=== PATIENT | male | born 1945 | race Caucasian/White ===

== ENCOUNTER 2016-10-21 15:29 | Emergency (ER) | payer OTHER ==
[~2016-10-21] VITALS: Ht 172.7 cm; Wt 104.0 kg
[~2016-10-21 15:29] MED LIST: ALLO100T30 PO; DOCU-144 PO; FERR325T20 PO; FURO40TA6 PO; OMEP-110 PO; PREG75CA PO; SPIR100T2 PO; SPIR50TA PO; TRAM50TA2 PO
[2016-10-21] MEDS ORDERED: SODIUM CHLORIDE FLUSH 10ML SYR IVF ONE (16:00)
[2016-10-21 16:26] LABS: ASPARTATE AMINO TRANSFERASE 33 U/L (15-37); BLOOD UREA NITROGEN 58 mg/dL (7-18)
[2016-10-21 16:35] LABS: IS PT STATUS REG ER OR PRE ER? YES
[2016-10-21 20:07] VITALS: BP 118/67
== END 2016-10-21 20:12 | disposition home or self-care (01) ==
LOC: ED 20:11
DX: R18.8 Other ascites (principal); R06.00 Dyspnea, unspecified; I25.2 Old myocardial infarction; I50.9 Heart failure, unspecified; N18.3 Chronic kidney disease, stage 3 (moderate)
CPT/HCPCS: 36415; 49083; 71010; 80053; 83880; 84484; 85025; 85610; 85730; 93005

== ENCOUNTER 2016-11-05 10:57 | Inpatient (IN) | payer OTHER ==
[~2016-11-05] VITALS: Ht 172.7 cm; Wt 121.8 kg
[2016-11-05] MEDS ORDERED: FURO-93 PO (11:18)
[2016-11-05] MEDS ORDERED: SPIR25TA3 PO (11:18)
[2016-11-05] MEDS ORDERED: SODIUM CHLORIDE FLUSH 10ML SYR IVF ONE (11:30)
[2016-11-05] MEDS ORDERED: PLEASE ENTER HEIGHT AND WEIGHT MC SCH (11:30)
[2016-11-05 11:51] LABS: ASPARTATE AMINO TRANSFERASE 38 U/L (15-37); BLOOD UREA NITROGEN 66 mg/dL (7-18)
[2016-11-05 11:57] LABS: IS PT STATUS REG ER OR PRE ER? YES
[2016-11-05] MEDS ORDERED: SODIUM CHLORIDE 0.9% 1,000 ML IV SCH (13:07)
[2016-11-05] MEDS ORDERED: ONDANSETRON ODT 4 MG PO PRN (13:30)
[2016-11-05 15:05] VITALS: BP 113/75
[2016-11-05] MEDS ORDERED: FUROSEMIDE 20 MG TABLET PO SCH (21:00)
[2016-11-05 21:04] VITALS: BP 113/75
[2016-11-05] MEDS: LACTULOSE 10 GM/15 ML UDC PO SCH (22:30)
[2016-11-06] MEDS: OXYcodone IR 5MG TABLET PO PRN ×2 (00:31→05:22)
[2016-11-06 01:23] VITALS: BP 106/66
[2016-11-06 04:15] LABS: BLOOD UREA NITROGEN 68 mg/dL (7-18)
[2016-11-06 08:16] VITALS: BP 113/75
[2016-11-06] MEDS: ALLOPURINOL 100 MG TABLET PO SCH (09:00)
[2016-11-06] MEDS ORDERED: FUROSEMIDE 20 MG TABLET PO SCH (09:00)
[2016-11-06] MEDS: LACTULOSE 10 GM/15 ML UDC PO SCH ×2 (10:41→22:48)
[2016-11-06] MEDS ORDERED: ALBUMIN HUMAN 25% 50 ML IV ONE (12:30)
[2016-11-06] MEDS ORDERED: FUROSEMIDE 40 MG/4 ML IV ONE (12:30)
[2016-11-06] MEDS ORDERED: SODIUM CHLORIDE 0.9% 1,000 ML IV SCH ×2 (13:07)
[2016-11-06] MEDS: SPIRONOLACTONE 25 MG TABLET PO SCH (13:11)
[2016-11-06] MEDS: SODIUM CHLORIDE 0.9% 1,000 ML IV SCH (13:11)
[2016-11-06] MEDS ORDERED: SODIUM BICARBONATE 4.2%, 5ML ONE (13:47)
[2016-11-06] MEDS ORDERED: LIDOCAINE 1%, 20ML ONE (13:47)
[2016-11-06 15:16] VITALS: BP 113/76
[2016-11-06 19:17] VITALS: BP 95/59
[2016-11-07] MEDS: SODIUM CHLORIDE 0.9% 1,000 ML IV SCH ×2 (00:33→13:21)
[2016-11-07 03:01] VITALS: BP_SYST 103; BP_SYST 127; BP_DIAS 66; BP_DIAS 72
[2016-11-07 05:41] LABS: ASPARTATE AMINO TRANSFERASE 25 U/L (15-37); BLOOD UREA NITROGEN 67 mg/dL (7-18)
[2016-11-07 06:54] VITALS: BP 96/61
[2016-11-07] MEDS: OXYcodone IR 5MG TABLET PO PRN ×3 (08:35→17:07)
[2016-11-07] MEDS: LACTULOSE 10 GM/15 ML UDC PO SCH ×2 (08:36→20:52)
[2016-11-07] MEDS: ALLOPURINOL 100 MG TABLET PO SCH (08:36)
[2016-11-07] MEDS ORDERED: FUROSEMIDE 20 MG TABLET PO SCH ×2 (09:00→21:00)
[2016-11-07] MEDS ORDERED: HEPARIN 5,000 UNITS/ML, 1ML SQ SCH (11:30)
[2016-11-07 12:35] VITALS: BP 98/64
[2016-11-07 20:30] VITALS: BP 99/65
[2016-11-08 02:26] VITALS: BP 121/68
[2016-11-08] MEDS: SODIUM CHLORIDE 0.9% 1,000 ML IV SCH (03:10)
[2016-11-08 07:44] VITALS: BP 111/71
[2016-11-08] MEDS ORDERED: CEFTRIAXONE PMX 1GM/50ML 50 ML IV SCH (08:00)
[2016-11-08] MEDS ORDERED: POLYETHYLENE GLYCOL 17 GM PACKET PO PRN (08:30)
[2016-11-08 08:38] LABS: ASPARTATE AMINO TRANSFERASE 21 U/L (15-37); BLOOD UREA NITROGEN 72 mg/dL (7-18)
[2016-11-08] MEDS: FUROSEMIDE 40 MG TABLET PO SCH ×3 (09:00→21:28)
[2016-11-08] MEDS: SPIRONOLACTONE 25 MG TABLET PO SCH ×2 (09:00→10:25)
[2016-11-08] MEDS: OXYcodone IR 5MG TABLET PO PRN ×3 (10:21→23:04)
[2016-11-08] MEDS: LACTULOSE 10 GM/15 ML UDC PO SCH ×2 (10:25→21:28)
[2016-11-08] MEDS: ALLOPURINOL 100 MG TABLET PO SCH (10:25)
[2016-11-08] MEDS: DOCUSATE 100 MG CAPSULE PO SCH (10:35)
[2016-11-08 12:30] VITALS: BP 108/70
[2016-11-08] MEDS: POLYETHYLENE GLYCOL 17 GM PACKET PO PRN (13:20)
[2016-11-08 19:08] VITALS: BP 113/73
[2016-11-09 01:26] VITALS: BP 115/75
[2016-11-09 08:14] VITALS: BP 116/73
[2016-11-09] MEDS: SPIRONOLACTONE 25 MG TABLET PO SCH (09:00)
[2016-11-09] MEDS: FUROSEMIDE 40 MG TABLET PO SCH (09:00)
[2016-11-09] MEDS: DOCUSATE 100 MG CAPSULE PO SCH (09:00)
[2016-11-09] MEDS ORDERED: SODIUM CHLORIDE NASAL SPRAY 45ML BOTTLE NAS PRN (09:00)
[2016-11-09] MEDS ORDERED: FUROSEMIDE 100 MG/10 ML IV ONE (14:00)
[2016-11-09 14:30] VITALS: BP 113/69
[2016-11-09] MEDS: LACTULOSE 10 GM/15 ML UDC PO SCH ×2 (17:32→21:00)
[2016-11-09] MEDS: OXYcodone IR 5MG TABLET PO PRN (17:33)
[2016-11-09 20:13] VITALS: BP 116/75
[2016-11-10 01:39] VITALS: BP 117/75
[2016-11-10 04:28] VITALS: BP 124/81
[2016-11-10] MEDS ORDERED: FUROSEMIDE 40 MG/4 ML IV SCH (07:30)
[2016-11-10 07:34] VITALS: BP 134/68
[2016-11-10] MEDS: SPIRONOLACTONE 25 MG TABLET PO SCH (09:00)
[2016-11-10] MEDS: DOCUSATE 100 MG CAPSULE PO SCH (09:00)
[2016-11-10] MEDS: LACTULOSE 10 GM/15 ML UDC PO SCH ×2 (09:00→22:02)
[2016-11-10] MEDS: OXYcodone IR 5MG TABLET PO PRN ×2 (14:55→22:02)
[2016-11-10 15:55] LABS: HEP B SURF. AB 3.3 mIU/mL (0.0-10.0)
[2016-11-10 18:49] VITALS: BP 123/82
[2016-11-11 00:45] VITALS: BP 118/76
[2016-11-11 08:04] VITALS: BP 118/80
[2016-11-11 08:49] LABS: BLOOD UREA NITROGEN 53 mg/dL (7-18)
[2016-11-11] MEDS ORDERED: BISACODYL 10 MG SUPP PR PRN (11:30)
[2016-11-11] MEDS: DOCUSATE 100 MG CAPSULE PO SCH (11:49)
[2016-11-11] MEDS: LACTULOSE 10 GM/15 ML UDC PO SCH ×2 (11:49→20:59)
[2016-11-11] MEDS: OXYcodone IR 5MG TABLET PO PRN ×2 (11:49→20:32)
[2016-11-11 13:07] VITALS: BP 121/78
[2016-11-11 20:00] VITALS: BP 114/76
[2016-11-11] MEDS: POLYETHYLENE GLYCOL 17 GM PACKET PO PRN (20:59)
[2016-11-12 00:20] VITALS: BP 123/75
[2016-11-12 08:12] VITALS: BP 106/70
[2016-11-12] MEDS: DOCUSATE 100 MG CAPSULE PO SCH (08:15)
[2016-11-12] MEDS: LACTULOSE 10 GM/15 ML UDC PO SCH (08:15)
[2016-11-12 13:54] VITALS: BP 109/69
== END 2016-11-12 14:20 | disposition hospice, home (50) | DRG 683 ==
LOC: ED 13:05 → EDIP 13:06 → ED 13:16 → 5SO 14:59 → 4EST 11-06 18:41
PROVIDERS: ADMIT Family Medicine; ATTEND Family Medicine
PROC: 0T9B70Z Drainage of Bladder with Drainage Device, Via Natural or Artificial Opening (ICD-10-PCS; 2016-11-05)
PROC: 0W9G3ZZ Drainage of Peritoneal Cavity, Percutaneous Approach (ICD-10-PCS; principal; 2016-11-06)
PROC: BW40ZZZ Ultrasonography of Abdomen (ICD-10-PCS; 2016-11-06)
PROC: 02HV33Z Insertion of Infusion Device into Superior Vena Cava, Percutaneous Approach (ICD-10-PCS; 2016-11-10)
PROC: B548ZZA Ultrasonography of Superior Vena Cava, Guidance (ICD-10-PCS; 2016-11-10)
PROC: 5A1D60Z (ICD-10-PCS; 2016-11-10)
DX: N17.9 Acute kidney failure, unspecified (principal); E87.1 Hypo-osmolality and hyponatremia; I50.22 Chronic systolic (congestive) heart failure; K72.90 Hepatic failure, unspecified without coma; N18.4 Chronic kidney disease, stage 4 (severe); I50.9 Heart failure, unspecified; Z51.5 Encounter for palliative care; D63.8 Anemia in other chronic diseases classified elsewhere; E11.22 Type 2 diabetes mellitus with diabetic chronic kidney disease; E78.5 Hyperlipidemia, unspecified; F41.9 Anxiety disorder, unspecified; E87.5 Hyperkalemia; I25.10 Atherosclerotic heart disease of native coronary artery without angina pectoris; J45.909 Unspecified asthma, uncomplicated; K21.9 Gastro-esophageal reflux disease without esophagitis; K74.60 Unspecified cirrhosis of liver; M10.9 Gout, unspecified; N50.89 Other specified disorders of the male genital organs; Z66 Do not resuscitate; Z86.74 Personal history of sudden cardiac arrest
CPT/HCPCS: 36415; 36556; 49083; 71010; 74150; 76937; 77001; 80048; 80053; 80069; 81001; 82042; 82140; 83605; 83880; 84145; 84157; 84295; 84484; 85025; 85610; 85730; 86706; 87040; 87086; 87340; 89051; 93005; J1940; J3490; P9047; C1751; J1642; J7030